=== PATIENT | female | born 1995 | race Asian ===

== ENCOUNTER 2020-10-15 18:00 | Emergency (ER) | payer OTHER ==
[2020-10-15 18:25] LABS: MUDS CUTOFF CONCENTRATIONS CUTOFF CONC BELOW:
[2020-10-15 18:28] LABS: BILIRUBIN,URINE NEGATIVE (NEGATIVE); GLUCOSE, URINE (UA) NEGATIVE (NEGATIVE); KETONES,URINE (UA) NEGATIVE (NEGATIVE); LEUKOCYTE ESTERASE, URINE NEGATIVE (NEGATIVE); NITRITE,URINE NEGATIVE (NEGATIVE); OCCULT BLOOD,URINE NEGATIVE (NEGATIVE); PH,URINE 7.5 PH (5.0-7.5); PROTEIN,URINE NEGATIVE (NEGATIVE); UROBILINOGEN,URINE 0.2 (NORMAL) E.U./dL (NORMAL)
[2020-10-15 18:29] LABS: CLARITY,URINE CLEAR (CLEAR); HCG UR QUAL NEGATIVE
[2020-10-15 18:38] LABS: AMPHETAMINE SCREEN,URINE NEGATIVE (NEGATIVE); BENZODIAZEPINES SCREEN, URINE NEGATIVE (NEGATIVE); COCAINE SCREEN URINE NEGATIVE (NEGATIVE); METHADONE SCREEN, URINE NEGATIVE (NEGATIVE); METHAMPHETAMINES SCREEN, URINE NEGATIVE (NEGATIVE); OPIATE SCREEN, URINE NEGATIVE (NEGATIVE); OXYCODONE SCREEN, URINE NEGATIVE (NEGATIVE); PROPOXYPHENE SCREEN, URINE NEGATIVE (NEGATIVE); TRICYCLIC ANTIDEPRESSANT,URINE NEGATIVE (NEGATIVE)
[2020-10-15 18:38] LABS: BASOPHILS # (AUTO) 0.1 10^3/uL (0.0-0.1); BASOPHILS % (AUTO) 0.9 %; EOSINOPHILS # (AUTO) 0.1 10^3/uL (0.0-0.7); EOSINOPHILS % (AUTO) 0.9 %; HGB - HEMOGLOBIN 12.7 g/dL (12.0-16.0); LYMPHOCYTES # (AUTO) 1.9 10^3/uL (1.5-3.5); LYMPHOCYTES % (AUTO) 35.4 %; MEAN CORPUSCULAR HEMOGLOBIN 31.4 pg (27.0-31.0); MEAN CORPUSCULAR HGB CONC 33.4 g/dL (32.0-36.0); MEAN CORPUSCULAR VOLUME 94.1 fL (81.0-99.0); MEAN PLATELET VOLUME 9.4 fL (7.9-10.8); MONOCYTES # (AUTO) 0.4 10^3/uL (0.0-1.0); NEUTROPHILS % (AUTO) 55.6 %; PLT - PLATELET COUNT 321 10^3/uL (130-450); RED BLOOD COUNT 4.04 10^6/uL (4.20-5.40); RED CELL DISTRIBUTION WIDTH 12.1 % (12.0-15.0); WHITE BLOOD COUNT 5.4 x10^3/uL (4.8-10.8)
--- NOTE | 2020-10-15 18:50 | ED Physician Documentation ---
PD HPI MHE - Stated complaint Stated Complaint: MHE - Chief complaint Chief Complaint: MHE - History obtained from History obtained from: Patient - History of Present Illness Primary symptom: Suicidal ideation Pain level max: 0 Pain level now: 0 Contributing factors: No: Substance abuse - ETOH, Substance abuse - drugs Recently seen: Not recently seen - Additional information Additional information: Patient is a 25-year-old female who presents to the emergency department stating that she was talking to the crisis line yesterday and told them she was feeling suicidal. She spoke with her command today at work, she is active [employer], And they told her to come to the emergency department so [place]. She states she is not actively suicidal currently. Does not have a plan. She states she just likes to call the crisis line and talk to them because they do not lead etl developer her and do not know her. No prior suicide attempts. No prior hospitalizations. Review of Systems Ten Systems: 10 systems reviewed and negative Constitutional: denies: Fever, Chills Respiratory: denies: Cough GI: denies: Abdominal Pain, Nausea, Vomiting, Diarrhea Skin: denies: Rash Musculoskeletal: denies: Neck pain, Back pain Neurologic: denies: Headache PD PAST MEDICAL HISTORY - Past Medical History Past Medical History: No - Past Surgical History Past Surgical History: No - Present Medications Home Medications: Ambulatory Orders Medication Instructions Recorded Confirmed No Known Home Medications 10/15/20 10/15/20 - Allergies Allergies/Adverse Reactions: Allergies Allergy/AdvReac Type Severity Reaction Status Date / Time No Known Drug Allergies Allergy Verified 10/15/20 18:10 - Social History Does the pt smoke?: Yes Smoking Status: Current every day smoker Does the pt drink ETOH?: No Does the pt have substance abuse?: No - Immunizations Immunizations are current?: Yes - POLST Patient has POLST: No PD ED PE NORMAL - Vitals Vital signs reviewed: Yes - General General: Alert and oriented X 3, No acute distress, Well developed/nourished - HEENT HEENT: PERRL, Moist mucous membranes - Neck Neck: Supple, no meningeal sign - Cardiac Cardiac: RRR, Strong equal pulses - Respiratory Respiratory: No respiratory distress, Clear bilaterally - Abdomen Abdomen: Soft, Non tender, Non distended - Derm Derm: Warm and dry - Extremities Extremities: No edema - Neuro Neuro: Alert and oriented X 3 - Psych Psych: Normal mood, Normal affect Results - Vitals Vitals: Vital Signs - 24 hr 10/15/20 18:05 Temperature 36.6 C Heart Rate 98 Respiratory 20 Rate Blood Pressure 115/77 O2 Saturation 100 Oxygen O2 Source Room air - Labs Labs: Laboratory Tests 10/15/20 10/15/20 10/15/20 18:18 18:18 18:18 WBC RBC Hgb Hct MCV MCH MCHC RDW Plt Count MPV Neut # (Auto) Lymph # (Auto) Moore # (Auto) Eos # (Auto) Baso # (Auto) Absolute Nucleated RBC Nucleated RBC % Sodium Potassium Chloride Carbon Dioxide Anion Gap BUN Creatinine Estimated GFR (MDRD) Glucose Calcium Total Bilirubin AST ALT Alkaline Phosphatase Total Protein Albumin Globulin Albumin/Globulin Ratio Lipase TSH Urine Color YELLOW Urine Clarity CLEAR Urine pH 7.5 Ur Specific Red Devil 1.020 Urine Protein NEGATIVE Urine Glucose (UA) NEGATIVE Urine Ketones NEGATIVE Urine Occult Blood NEGATIVE Urine Nitrite NEGATIVE Urine Bilirubin NEGATIVE Urine Urobilinogen 0.2 (NORMAL) Ur Leukocyte Esterase NEGATIVE Ur Microscopic Review NOT INDICATED Urine Culture Comments NOT INDICATED Urine HCG, Qual NEGATIVE Nasal Adenovirus (PCR) Nasal B. parapertussis DNA (PCR) Nasal Coronavir 229E PCR Nasal Coronavir HKU1 PCR Nasal Coronavir NL63 PCR Nasal Coronavir OC43 PCR Nasal Enterovir/Rhinovir PCR Nasal Influenza B PCR Nasal Influenza A PCR Nasal Parainfluen 1 PCR Nasal Parainfluen 2 PCR Nasal Parainfluen 3 PCR Nasal Parainfluen 4 PCR Nasal RSV (PCR) Nasal B.pertussis DNA PCR Nasal C.pneumoniae (PCR) Tanner Human Metapneumo PCR Nasal M.pneumoniae (PCR) Nasal SARS-CoV-2 (PCR) Salicylates Urine Opiates Screen NEGATIVE Ur Oxycodone Screen NEGATIVE Urine Methadone Screen NEGATIVE Ur Propoxyphene Screen NEGATIVE Acetaminophen Ur Barbiturates Screen NEGATIVE Ur Tricyclics Screen NEGATIVE Ur Phencyclidine Scrn NEGATIVE Ur Amphetamine Screen NEGATIVE U Methamphetamines Scrn NEGATIVE U Benzodiazepines Scrn NEGATIVE Urine Cocaine Screen NEGATIVE U Cannabinoids Screen NEGATIVE Ethyl Alcohol 10/15/20 10/15/20 10/15/20 18:23 18:28 18:28 WBC 5.4 RBC 4.04 L Hgb 12.7 Hct 38.0 MCV 94.1 MCH 31.4 H MCHC 33.4 RDW 12.1 Plt Count 321 MPV 9.4 Neut # (Auto) 3.0 Lymph # (Auto) 1.9 Moore # (Auto) 0.4 Eos # (Auto) 0.1 Baso # (Auto) 0.1 Absolute Nucleated RBC 0.00 Nucleated RBC % 0.0 Sodium 142 Potassium 3.8 Chloride 108 Carbon Dioxide 25 Anion Gap 9.0 BUN 12 Creatinine 0.7 Estimated GFR (MDRD) 103 Glucose 98 Calcium 9.6 Total Bilirubin 0.7 AST 22 ALT 16 Alkaline Phosphatase 63 Total Protein 8.0 Albumin 4.7 Globulin 3.3 Albumin/Globulin Ratio 1.4 Lipase 38 TSH Urine Color Urine Clarity Urine pH Ur Specific Red Devil Urine Protein Urine Glucose (UA) Urine Ketones Urine Occult Blood Urine Nitrite Urine Bilirubin Urine Urobilinogen Ur Leukocyte Esterase Ur Microscopic Review Urine Culture Comments Urine HCG, Qual Nasal Adenovirus (PCR) NOT DETECTED Nasal B. parapertussis DNA (PCR) NOT DETECTED Nasal Coronavir 229E PCR NOT DETECTED Nasal Coronavir HKU1 PCR NOT DETECTED Nasal Coronavir NL63 PCR NOT DETECTED Nasal Coronavir OC43 PCR NOT DETECTED Nasal Enterovir/Rhinovir PCR NOT DETECTED Nasal Influenza B PCR NOT DETECTED Nasal Influenza A PCR NOT DETECTED Nasal Parainfluen 1 PCR NOT DETECTED Nasal Parainfluen 2 PCR NOT DETECTED Nasal Parainfluen 3 PCR NOT DETECTED Nasal Parainfluen 4 PCR NOT DETECTED Nasal RSV (PCR) NOT DETECTED Nasal B.pertussis DNA PCR NOT DETECTED Nasal C.pneumoniae (PCR) NOT DETECTED Tanner Human Metapneumo PCR NOT DETECTED Nasal M.pneumoniae (PCR) NOT DETECTED Nasal SARS-CoV-2 (PCR) NOT DETECTED Salicylates < 6.0 Urine Opiates Screen Ur Oxycodone Screen Urine Methadone Screen Ur Propoxyphene Screen Acetaminophen < 10 L Ur Barbiturates Screen Ur Tricyclics Screen Ur Phencyclidine Scrn Ur Amphetamine Screen U Methamphetamines Scrn U Benzodiazepines Scrn Urine Cocaine Screen U Cannabinoids Screen Ethyl Alcohol < 5.0 10/15/20 18:28 WBC RBC Hgb Hct MCV MCH MCHC RDW Plt Count MPV Neut # (Auto) Lymph # (Auto) Moore # (Auto) Eos # (Auto) Baso # (Auto) Absolute Nucleated RBC Nucleated RBC % Sodium Potassium Chloride Carbon Dioxide Anion Gap BUN Creatinine Estimated GFR (MDRD) Glucose Calcium Total Bilirubin AST ALT Alkaline Phosphatase Total Protein Albumin Globulin Albumin/Globulin Ratio Lipase TSH 1.10 Urine Color Urine Clarity Urine pH Ur Specific Red Devil Urine Protein Urine Glucose (UA) Urine Ketones Urine Occult Blood Urine Nitrite Urine Bilirubin Urine Urobilinogen Ur Leukocyte Esterase Ur Microscopic Review Urine Culture Comments Urine HCG, Qual Nasal Adenovirus (PCR) Nasal B. parapertussis DNA (PCR) Nasal Coronavir 229E PCR Nasal Coronavir HKU1 PCR Nasal Coronavir NL63 PCR Nasal Coronavir OC43 PCR Nasal Enterovir/Rhinovir PCR Nasal Influenza B PCR Nasal Influenza A PCR Nasal Parainfluen 1 PCR Nasal Parainfluen 2 PCR Nasal Parainfluen 3 PCR Nasal Parainfluen 4 PCR Nasal RSV (PCR) Nasal B.pertussis DNA PCR Nasal C.pneumoniae (PCR) Tanner Human Metapneumo PCR Nasal M.pneumoniae (PCR) Nasal SARS-CoV-2 (PCR) Salicylates Urine Opiates Screen Ur Oxycodone Screen Urine Methadone Screen Ur Propoxyphene Screen Acetaminophen Ur Barbiturates Screen Ur Tricyclics Screen Ur Phencyclidine Scrn Ur Amphetamine Screen U Methamphetamines Scrn U Benzodiazepines Scrn Urine Cocaine Screen U Cannabinoids Screen Ethyl Alcohol PD MEDICAL DECISION MAKING - ED course Complexity details: reviewed results, re-evaluated patient, considered differential, d/w patient ED course: Patient is medically clear for psychiatric care. She is calm and cooperative here. Telepsychiatry consulted. Patient will be signed out to the oncoming emergency department physician awaiting telepsychiatry consultation. This document was made in part using voice recognition software. While efforts are made to proofread this document, sound alike and grammatical errors may oc cur. Departure - Departure Clinical Impression: Suicidal ideation Depression Qualifiers: Depression Type: unspecified Qualified Code(s): F32.9 - Major depressive disorder, single episode, unspecified Condition: Stable
[2020-10-15 18:55] LABS: ACETAMINOPHEN < 10 ug/mL (10-30); ALBUMIN 4.7 g/dL (3.2-5.5); ALBUMIN/GLOBULIN RATIO 1.4 (1.0-2.2); ALKALINE PHOSPHATASE 63 IU/L (42-121); ALT ALANINE AMINOTRANSFERASE 16 IU/L (10-60); AST ASPARTATE AMINOTRANSFERASE 22 IU/L (10-42); BILIRUBIN,TOTAL 0.7 mg/dL (0.2-1.0); BUN - BLOOD UREA NITROGEN 12 mg/dL (6-20); CALCIUM 9.6 mg/dL (8.5-10.3); CARBON DIOXIDE - CO2 25 mmol/L (21-32); CHLORIDE 108 mmol/L (101-111); CREATININE 0.7 mg/dL (0.4-1.0); GLUCOSE 98 mg/dL (70-100); LIPASE 38 U/L (22-51); SALICYLATE < 6.0 mg/dL; SODIUM 142 mmol/L (135-145)
[2020-10-15 19:27] LABS: C. PNEUMONIAE- RESP PCR PANEL NOT DETECTED
--- NOTE | 2020-10-15 23:41 | TELEPSYCH PHYS NOTE ---
Telepsych Note - CHIEF COMPLAINT/HX OF PRESENT ILLNESS Chief Complaint and History of Present Illness: Name: Lacey Fan : 73. 49F Date: 10/15/20 Time: 11:50pm [place] [facility] [place] Length of consult: 30min This evaluation was conducted via telepsychiatry with the assistance of onsite staff Chief Complaint: SI History of Present Illness: Pt seen via televideo with the help of onsite staff. Pt is a 25 yo female who reports a hx of Bipolar Disorder, Depression, Anxiety so so many things. Im sick in the head thats what mental illness is right, being sick in the head. She reports a hx of inpt committals x 2 as a teen. States she did not want to go but her parents forced her to. States her parents lied and told the doctors I was actively trying to hurt myself back then. States, I dont blame them they just didnt know how to fix me. No one does. Pt states despite her parents report, she has never attempted s uicide. Pt presented to the ED, referred by her command for evaluation. Pt reported initially to staff that she called the suicide hotline yesterday and told them she was suicidal. She then stated that she just likes to call the suicide hotline as she can be anonymous and talk to someone. Pt also reported to ED staff that she had no plan and no hx of attempts. Which she later contradicted with this junior technical writer. Chart was reviewed and appreciated. Pt seen and evaluated. Pt is guarded with junior technical writer. Poor eye contact. She looks down for long periods prior to answering many questions. She is fully oriented however with odd affect. Throughout the evaluation as she talks of darker topics she smiles and laughs. She talks about snails, turtles and bugs. She admits she is currently unstable. States she has been lying and hiding her true self. She admits to junior technical writer that she has struggled with SI for a long time. States that the Si thoughts have significantly intensified recently. She initially admits that she has thought of a plan to kill herself, however prior to providing the actual plans, she asked junior technical writer if I would not commit her. Pt ultimately reports a plan to overdose on OTC medications. Also states she has thought of methods which are not painful. I have a lot of options. States as a child I didnt want to live as an adult I think I may want to live but I dont know. States she has become aware of various other methods through reading books, online forms, Wikipedia. Pt states earlier yesterday someone saw her crying and spoke to her. States she confided about her call to to the suicide hotline and she was then reported to her command. Pt states her depression is worsening. States recently feeling extremely depressed. States she is depressed, feels trapped and cant escape. She endorses feelings of helplessness and hopelessness that she will ever improve. She cites her primary trigger as her committed [employer] service contract. States she is committed for 4 years for her service. Does not believe she will make it throughout. On ROS, pt initially reports she is hearing voices, then later denies and asked whether she would be committed. She is not forthcoming with this junior technical writer and admits this is the case. She denies VHs, delusions nor HI. She is exhibiting unstable mood and affect which are negatively impacting her ability to function and perform at her job. Pt admits to intensified depressive sxs and suicidal thoughts. She admits to having various plans. She is refusing collateral contact with her parents as she reports they may say the wrong thing about me. Pt is presenting in a decompensated state and requires inpt admission for safety and stabilization Collateral: EMR, ED staff. SI: prior ideation, states her parents told doctors in the past she has tried to kill herself but pt states she only had thoughts. HI/Violence: denies Trauma history: none reported Sex/human trafficking: none reported Access to guns: denies Legal Hx: none reported Substance Hx: Denies Medical History: none acute reported Medications & Freq: none currently Allergies: NKDA Family Psych History/History of suicide: Mother with depression. Social History: Relationship status single Employment: [employer] Stressors: see hpi Strengths/supports: Mental Status Exam: Appearance and attire: hospital attire Attitude and behavior: guarded Affect and mood: depressed / incongruent Association and thought process: minimizing, tangential, omissions, contradictory statements. Thought content: denies delusions. Denies HI. + SI. Perception: Denies AVHs Sensorium, memory, and orientation: AxOx3 Intellectual functioning: to assess Insight and judgment: impaired. - SI/HI/SELF HARM SI/HI/SELF HARM (CURRENT OR HISTORY OF):: SI - MEDICAL HX Does the pt have a hx of MRSA?: No - HOME MEDICATIONS Home Meds (as last confirmed): Patient History Medication Instructions Recorded Confirmed No Known Home Medications 10/15/20 10/15/20 - ALLERGIES Allergies (as last confirmed): Allergies Allergy/AdvReac Type Severity Reaction Status Date / Time No Known Drug Allergies Allergy Verified 10/15/20 18:10 - TREATMENT/PHARMACOLOGICAL RECOMMENDATION Treatment - Pharmacological - Therapy Recommendations: Diagnosis: Bipolar I Disorder, MRE depressed, severe. is exhibiting unstable mood and affect which are negatively impacting her a bility to function and perform at her job. Pt admits to intensified depressive sxs and suicidal thoughts. She admits to having various plans. Pt is presenting in a decompensated state and requires inpt admission for safety and stabilization Impression/Risk Assessment: Pt is exhibiting unstable mood and affect which are negatively impacting her ability to function and perform at her job. Pt admits to intensified depressive sxs and suicidal thoughts. She admits to having various plans. She is refusing collateral contact with her parents as she reports they may say the wrong thing about me. Pt is presenting in a decompensated state and requires inpt admission for safety and stabilization Treatment Recommendations: Pt requires acute inpt psychiatric admission For safety, stabilization and treatment Pt is not voluntary for admission and will require involuntary commitment. Start Abilify 5mg po Daily if pt is accepting. - TIME SPENT & PROVIDER LOCATION Telepsych consultation conducted via videoconferencing: Yes List names and roles of persons who participated in consult: Humble Lubin Telepsych Provider Location: [place] Time Telepsych consult began: 01:14 Time Telepsych consult completed: 02:05
--- NOTE | 2020-10-15 23:51 | TELEPSYCH PHYS NOTE ---
Telepsych Note - CHIEF COMPLAINT/HX OF PRESENT ILLNESS Chief Complaint and History of Present Illness: Name: Amee Gomez : 89. 25F Date: 10/16/20 Time: 1:15am Location of patient: [facility] Location of doctor: [place] Length of consult: 50min This evaluation was conducted via telepsychiatry with the assistance of onsite staff Chief Complaint: SI History of Present Illness: Pt seen via televideo with the help of onsite staff. Pt is a 25 yo female who reports a hx of Bipolar Disorder, Depression, Anxiety so so many things. Im sick in the head thats what mental illness is right, being sick in the head. She reports a hx of inpt committals x 2 as a teen. States she did not want to go but her parents forced her to. States her parents lied and told the doctors I was actively trying to hurt myself back then. States, I dont blame them they just didnt know how to fix me. No one does. Pt states despite her parents report, she has never attempted suicide. Pt presented to the ED, referred by her command for evaluation. Pt reported initially to staff that she called the suicide hotline yesterday and told them she was suicidal. She then stated that she just likes to call the suicide hotline as she can be anonymous and talk to someone. Pt also reported to ED staff that she had no plan and no hx of attempts. Which she later contradicted with this development writer. Chart was reviewed and appreciated. Pt seen and evaluated. Pt is guarded with development writer. Poor eye contact. She looks down for long periods prior to answering many questions. She is fully oriented however with odd affect. Throughout the evaluation as she talks of darker topics she smiles and laughs. She talks about snails, turtles and bugs. She admits she is currently unstable. States she has been lying and hiding her true self. She admits to development writer that she has struggled with SI for a long time. States that the Si thoughts have significantly intensified recently. She initially admits that she has thought of a plan to kill herself, however prior to providing the actual plans, she asked development writer if I would not commit her. Pt ultimately reports a plan to overdose on OTC medications. Also states she has thought of methods which are not painful. I have a lot of options. States as a child I didnt want to live as an adult I think I may want to live but I dont know. States she has become aware of various other methods through reading books, online forms, Wikipedia. Pt states earlier yesterday someone saw her crying and spoke to her. States she confided about her call to to the suicide hotline and she was then reported to her command. Pt states her depression is worsening. States recently feeling extremely depressed. States she is depressed, feels trapped and cant escape. She endorses feelings of helplessness and hopelessness that she will ever improve. She cites her primary trigger as her committed [employer] service contract. States she is committed for 4 years for her service. Does not believe she will make it throughout. On ROS, pt initially reports she is hearing voices, then later denies and asked whether she would be committed. She is not forthcoming with this development writer and admits this is the case. She denies VHs, delusions nor HI. She is exhibiting unstable mood and affect which are negatively impacting her ability to function and perform at her job. Pt admits to intensified depressive sxs and suicidal thoughts. She admits to having various plans. She is refusing collateral contact with her parents as she reports they may say the wrong thing about me. Pt is presenting in a decompensated state and requires inpt admission for safety and stabilization Collateral: EMR, ED staff. Pt refused collateral contact with her parents. SI: prior ideation, states her parents told doctors in the past she has tried to kill herself but pt states she only had thoughts. HI/Violence: denies Trauma history: none reported Sex/human trafficking: none reported Access to guns: denies Legal Hx: none reported Substance Hx: Denies Medical History: none acute reported Medications & Freq: none currently Allergies: NKDA Family Psych History/History of suicide: Mother with depression. Social History: Relationship status single Employment: [employer] Stressors: see hpi Strengths/supports: Mental Status Exam: Appearance and attire: hospital attire Attitude and behavior: guarded Affect and mood: depressed / incongruent Association and thought process: minimizing, tangential, omissions, contradictory statements. Thought content: denies delusions. Denies HI. + SI. Perception: Denies AVHs Sensorium, memory, and orientation: AxOx3 Intellectual functioning: to assess Insight and judgment: impaired. - SI/HI/SELF HARM SI/HI/SELF HARM (CURRENT OR HISTORY OF):: SI - PSYCHIATRIC HX/TREATMENT HX Psychiatric: Depression, Anxiety, Bipolar disorder - MEDICAL HX Does the pt have a hx of MRSA?: No - HOME MEDICATIONS Home Meds (as last confirmed): Patient History Medication Instructions Recorded Confirmed No Known Home Medications 10/15/20 10/15/20 - ALLERGIES Allergies (as last confirmed): Allergies Allergy/AdvReac Type Severity Reaction Status Date / Time No Known Drug Allergies Allergy Verified 10/15/20 18:10 - TREATMENT/PHARMACOLOGICAL RECOMMENDATION Treatment - Pharmacological - Therapy Recommendations: Diagnosis: Bipolar I Disorder, MRE depressed, severe. is exhibiting unstable mood and affect which are negatively impacting her ability to function and perform at her job. Pt admits to intensified depressive sxs and suicidal thoughts. She admits to having various plans. Pt is presenting in a decompensated state and requires inpt admission for safety and stabilization Impression/Risk Assessment: Pt is exhibiting unstable mood and affect which are negatively impacting her ability to function and perform at her job. Pt admits to intensified depressive sxs and suicidal thoughts. She admits to having various plans. She is refusing collateral contact with her parents as she reports they may say the wrong thing about me. Pt is presenting in a decompensated state and requires inpt admission for safety and stabilization Treatment Recommendations: Pt requires acute inpt psychiatric admission For safety, stabilization and treatment Pt is not voluntary for admission and will require involuntary commitment. Start Abilify 5mg po Daily if pt is accepting. - TIME SPENT & PROVIDER LOCATION Telepsych consultation conducted via videoconferencing: Yes List names and roles of persons who participated in consult: Humble Lubin Telepsych Provider Location: [place] Time Telepsych consult began: 01:15 Time Telepsych consult completed: 02:30
[2020-10-16 00:48] VITALS: BP 121/92
--- NOTE | 2020-10-16 05:40 | ED Physician Documentation ---
ED Addendum - Addendum Addendum: 10/16/20 05:32 Received sign out from Dr. Moon at end of his shift pending telepsych evaluation. Telepsych completed their evaluation and recommend admission to mental health facility for stabilization, and that patient is involuntary. I informed the patient of this and she tells me she cannot go to a facility for inpatient treatment. She says she has things to do including work at [facility]; she says she does not feel she needs inpatient treatment anyway. She is trying to get in touch with her command as we discuss this. ED RN d/w both the [facility] cmv driver who brought patient to ED (and is in waiting room) and patient's command Chief Price. ED RN says that Chief Price discussed the case, including telepsychiatrist's recommendation for involuntary inpatient treatment, with the flight surgeon at [facility]. Chief Price relays to ED RN that [employer] command that drove patient to ED will drive patient back to [facility] where she will be placed on suicide watch (1:1 watch) and they will transport patient to [facility] in the morning.
== END 2020-10-16 00:46 | disposition home or self-care (01) ==
LOC: ED 18:00
DX: F32.9 Major depressive disorder, single episode, unspecified (principal); F32.2 Major depressive disorder, single episode, severe without psychotic features; R45.851 Suicidal ideations; F17.200 Nicotine dependence, unspecified, uncomplicated; Z20.828 Contact with and (suspected) exposure to other viral communicable diseases
CPT/HCPCS: 0202U; 80320; 80329; 81003; 81025; 83690; 99283; G0427; 80053; 80306; 80307; 81001; 84443; 85025; 87086

== ENCOUNTER 2020-12-08 19:35 | Emergency (ER) | payer OTHER ==
--- NOTE | 2020-12-08 19:54 | ED Physician Documentation ---
History of Present Illness - Stated complaint Stated Complaint: LABS RESULTS/SENT BY - Chief complaint Chief Complaint: General - History obtained from History obtained from: Patient - Additonal information Additional information: She was hospitalized at [facility] after being transferred there from here in mid October. While there was ascertained that she had overdosed on rat poison her INR is became supratherapeutic and were followed. She was treated with vitamin K and released from the hospital on vitamin K at a dose of we think, 5 mg 3 times a day. Last week her INR was okay. They checked it yesterday and it was greater than 10. She is on vitamin K taper and has tapered down from 5 mg, again we think based on her description 3 times a day down to just 5 mg a day. She denies taking recent rat poison care. No current SI. Review of Systems Ten Systems: 10 systems reviewed and negative Throat: reports: Other (A little bit of gum bleeding when she brushes) PD PAST MEDICAL HISTORY - Past Medical History Psych: Depression, Anxiety, Bipolar disorder - Past Surgical History Past Surgical History: No - Present Medications Home Medications: Ambulatory Orders Medication Instructions Recorded Confirmed Phytonadione [Mephyton] 5 mg PO BID 12/08/20 12/08/20 Phytonadione [Mephyton] 5 mg PO TID #90 12/08/20 - Allergies Allergies/Adverse Reactions: Allergies Allergy/AdvReac Type Severity Reaction Status Date / Time No Known Drug Allergies Allergy Verified 12/08/20 19:49 - Social History Does the pt smoke?: Yes Smoking Status: Current every day smoker Does the pt drink ETOH?: No Does the pt have substance abuse?: No - Immunizations Immunizations are current?: Yes - POLST Patient has POLST: No PD ED PE NORMAL - Vitals Vital signs reviewed: Yes - General General: Alert and oriented X 3, No acute distress - HEENT HEENT: Pharynx benign - Derm Derm: Normal color, Warm and dry - Neuro Neuro: Alert and oriented X 3, Normal speech Results - Vitals Vitals: Vital Signs - 24 hr 12/08/20 19:40 Temperature 36.9 C Heart Rate 111 H Respiratory 18 Rate Blood Pressure 108/92 H O2 Saturation 100 Oxygen O2 Source Room air - Labs Labs: Laboratory Tests 12/08/20 12/08/20 07:56 07:56 WBC 7.8 RBC 4.10 L Hgb 12.9 Hct 39.5 MCV 96.3 MCH 31.5 H MCHC 32.7 RDW 12.7 Plt Count 365 MPV 9.0 Neut # (Auto) 4.4 Lymph # (Auto) 2.7 Morton # (Auto) 0.5 Eos # (Auto) 0.2 Baso # (Auto) 0.1 Absolute Nucleated RBC 0.00 Nucleated RBC % 0.0 Sodium 144 Potassium 3.7 Chloride 107 Carbon Dioxide 25 Anion Gap 12.0 BUN 14 Creatinine 0.7 Estimated GFR (MDRD) 103 Glucose 113 H Calcium 9.4 PD MEDICAL DECISION MAKING - ED course ED course: 25-year-old woman status post overdose on super Coumadin with high INR while tapering vitamin K. No evidence of heavy active bleeding. Will restart the vitamin K at the higher therapeutic dose which was working for her before. Discussed with Dr. Longo and after review of the literature she may need a much longer taper and higher doses for longer. Departure - Departure Disposition: Home, Self Care Clinical Impression: Supratherapeutic INR Condition: Good Record reviewed to determine appropriate education?: Yes Instructions: International Normalized Ratio Prescriptions: Phytonadione [Mephyton] 5 mg PO TID #90 Comments: Restart the vitamin K tomorrow at [address] Solorio will arrange to see you and get an INR Thursday. Return if worsening.
[2020-12-08 19:59] LABS: BASOPHILS # (AUTO) 0.1 10^3/uL (0.0-0.1); BASOPHILS % (AUTO) 1.3 %; EOSINOPHILS # (AUTO) 0.2 10^3/uL (0.0-0.7); EOSINOPHILS % (AUTO) 1.9 %; HCT - HEMATOCRIT 39.5 % (37.0-47.0); HGB - HEMOGLOBIN 12.9 g/dL (12.0-16.0); LYMPHOCYTES # (AUTO) 2.7 10^3/uL (1.5-3.5); MEAN CORPUSCULAR HEMOGLOBIN 31.5 pg (27.0-31.0); MEAN CORPUSCULAR HGB CONC 32.7 g/dL (32.0-36.0); MEAN CORPUSCULAR VOLUME 96.3 fL (81.0-99.0); MONOCYTES # (AUTO) 0.5 10^3/uL (0.0-1.0); MONOCYTES % (AUTO) 5.9 %; NEUTROPHILS # (AUTO) 4.4 10^3/uL (1.5-6.6); NEUTROPHILS % (AUTO) 56.8 %; PLT - PLATELET COUNT 365 10^3/uL (130-450); RED CELL DISTRIBUTION WIDTH 12.7 % (12.0-15.0); WHITE BLOOD COUNT 7.8 x10^3/uL (4.8-10.8)
[2020-12-08 20:08] LABS: CALCIUM 9.4 mg/dL (8.5-10.3); CREATININE 0.7 mg/dL (0.4-1.0); POTASSIUM 3.7 mmol/L (3.5-5.0)
[2020-12-08] MEDS ORDERED: CHERRY SYRUP 10 ML UDC PO ONE (20:41)
[2020-12-08] MEDS ORDERED: PHYTONADIONE 1 MG/0.5 ML AMP NEONATAL IM ONE ×2 (20:41→21:12)
[2020-12-08] MEDS ORDERED: PHYTONADIONE 10 MG/ML AMP PO ONE (20:41)
[2020-12-08 20:46] VITALS: BP 105/75
[2020-12-08] MEDS ORDERED: PHYTONADIONE 10 MG/ML AMP SUBQ ONE (21:03)
== END 2020-12-08 21:40 | disposition home or self-care (01) ==
LOC: ED 19:35
DX: R79.1 Abnormal coagulation profile (principal); F17.200 Nicotine dependence, unspecified, uncomplicated
CPT/HCPCS: 36415; 80048; 85025; 85610; 96372; 99283; A9270